=== PATIENT | female | born 1975 | race Caucasian/White ===

== ENCOUNTER 2017-06-23 14:33 | Emergency (ER) | payer SELFPAY ==
[2017-06-23] MEDS ORDERED: Sodium Chloride 0.9% 1,000 ML IV ONE (15:24)
[2017-06-23] MEDS ORDERED: diphenhydrAMINE 50 MG/ML SDV IVPUSH ONE (15:24)
--- NOTE | 2017-06-23 15:27 | EDM.PDOC ---
ED HPI GENERAL MEDICAL PROBLEM - General Chief Complaint: Allergic Reaction Stated Complaint: ALLERGIC REACTION/DISORIENTED ITCHY Time Seen by Provider: 06/23/17 15:25 Source of Information: Reports: Patient History Limitations: Reports: No Limitations - History of Present Illness INITIAL COMMENTS - FREE TEXT/NARRATIVE: History of present illness: [41-year-old female comes in complaining of itching and feelings of having an allergic reaction. Patient indicates that she could not afford her estrogen prescription so she subsequently took a [id number] estrogen type compound it was normal replacement. It had soy, black cohosh among other herbs and now patient feels like she's having allergic reaction.] Review of systems: As per history of present illness and below otherwise all systems reviewed and negative. Past medical history: As per history of present illness and as reviewed below otherwise noncontributory. Surgical history: As per history of present illness and as reviewed below otherwise noncontributory. Social history: No reported history of drug or alcohol abuse. Family history: As per history of present illness and as reviewed below otherwise noncontributory. Physical exam: HEENT: Atraumatic, normocephalic, pupils reactive, negative for conjunctival pallor or scleral icterus, mucous membranes moist, throat clear, neck supple, nontender, trachea midline. Lungs: Clear to auscultation, breath sounds equal bilaterally, chest nontender. Heart: S1S2, regular, negative for clicks, rubs, or JVD. Abdomen: Soft, nondistended, nontender. Negative for masses or hepatosplenomegaly. Negative for costovertebral tenderness. Pelvis: Stable nontender. Genitourinary: Deferred. Rectal: Deferred. Extremities: Atraumatic, negative for cords or calf pain. Neurovascular unremarkable. Neuro: Awake, alert, oriented. Cranial nerves II through XII unremarkable. Cerebellum unremarkable. Motor and sensory unremarkable throughout. Exam nonfocal. Skin slightly flushed otherwise no overt symptoms of allergic reaction Diagnostics: [] Therapeutics: [IV fluid, Benadryl] Impression: [Allergic reaction] Plan: [As continue OTC estrogen preparation follow-up with primary care] Definitive disposition and diagnosis as appropriate pending reevaluation and review of above. - Related Data Allergies Allergy/AdvReac Type Severity Reaction Status Date / Time levofloxacin [From Levuin] Allergy Rash Verified 06/23/17 14:46 Home Meds: Home Meds Cetirizine [ZyrTEC] 10 mg PO DAILY 06/23/17 [History] Esomeprazole Magnesium [Nexium] 20 mg PO DAILY 06/23/17 [History] Estrogens, Conjugated [Premarin] 1 tab PO DAILY 06/23/17 [History] Levothyroxine Sodium [Synthroid] 112 mcg PO DAILY 06/23/17 [History] Lisinopril 12.5 mg PO DAILY 06/23/17 [History] PNV95/Ferrous Fumarate/FA [ Tablet] 1 tab PO DAILY 06/23/17 [History] Simvastatin [Zocor] 20 mg PO DAILY 06/23/17 [History] buPROPion [Wellbutrin SR] 150 mg PO BID 06/23/17 [History] metFORMIN [Glucophage XR] 500 mg PO DAILY 06/23/17 [History] methylPREDNISolone [Medrol] 4 mg PO DAILY #21 tab.ds.pk 06/23/17 [Rx] valACYclovir [Valtrex] 500 mg PO DAILY 06/23/17 [History] Past Medical History Cardiovascular History: Reports: High Cholesterol, Hypertension Gastrointestinal History: Reports: GERD, Irritable Bowel Syndrome [employer] History: Reports: Psychiatric History: Reports: Anxiety Endocrine/Metabolic History: Reports: Hypothyroidism - Infectious Disease History Infectious Disease History: Reports: Chicken Pox - Past Surgical History HEENT Surgical History: Reports: Tonsillectomy GI Surgical History: Reports: Cholecystectomy Social & Family History - Family History Family Medical History: Noncontributory - Tobacco Use Smoking Status *Q: Never Smoker Second Hand Smoke Exposure: No - Caffeine Use Caffeine Use: Reports: Soda - Recreational Drug Use Recreational Drug Use: No ED ROS ALLERGIC REACTION - Review of Systems Review Of Systems: See Below (See history of present illness) ED EXAM GENERAL NO PERIP PULSE - Physical Exam Exam: See Below (See history of present illness) Course - Vital Signs Last Recorded V/S: Last Vital Signs Temp 37.0 C 06/23/17 14:43 Pulse 109 H 06/23/17 14:43 Resp 18 06/23/17 14:43 BP 137/82 06/23/17 14:43 Pulse Ox 96 06/23/17 14:43 - Orders/Labs/Meds Meds: Medications Discontinued Medications Generic Name Dose Route Start Last Admin Trade Name Freq PRN Reason Stop Dose Admin Diphenhydramine HCl 50 mg 06/23/17 15:24 06/23/17 16:03 Benadryl IVPUSH 06/23/17 15:25 50 mg ONETIME ONE Administration Sodium Chloride 1,000 mls @ 999 mls/hr 06/23/17 15:24 06/23/17 16:03 Normal Saline IV 06/23/17 16:24 999 mls/hr STAT ONE Administration Methylprednisolone Sodium Succinate 125 mg 06/23/17 16:33 Solu-Medrol IVPUSH 06/23/17 16:34 ONETIME ONE Departure - Departure Time of Disposition: 16:34 Disposition: Home, Self-Care 01 Condition: Good Clinical Impression: Allergic reaction - Discharge Information Prescriptions: methylPREDNISolone [Medrol] 4 mg PO DAILY #21 tab.ds.pk Referrals: Demi Mendes, EVELINE [Primary Care Provider] - Additional Instructions: The following information is given to patients seen in the emergency department who are being discharged to home. This information is to outline your options for follow-up care. We provide all patients seen in our emergency department with a follow-up referral. The need for follow-up, as well as the timing and circumstances, are variable depending upon the specifics of your emergency department visit. If you don't have a primary care physician on staff, we will provide you with a referral. We always advise you to contact your personal physician following an emergency department visit to inform them of the circumstance of the visit and for follow-up with them and/or the need for any referrals to a consulting specialist. The emergency department will also refer you to a specialist when appropriate. This referral assures that you have the opportunity for follow-up care with a specialist. All of these measure are taken in an effort to provide you with optimal care, which includes your follow-up. Under all circumstances we always encourage you to contact your private physician who remains a resource for coordinating your care. When calling for follow-up care, please make the office aware that this follow-up is from your recent emergency room visit. If for any reason you are refused follow-up, please contact the [facility] Emergency Department at and asked to speak to the emergency department charge nurse. Take medication as directed Discontinue the [id number] estrogen preparation we discussed Follow up with primary care 1-2 days Return to ED as needed as discussed
[2017-06-23] MEDS ORDERED: methylPREDNISolone Sodium Succinate 125 MG/2 ML SDV IVPUSH ONE (16:33)
== END 2017-06-23 17:17 | disposition home or self-care (01) ==
LOC: MW.ED 14:33
DX: T78.40XA Allergy, unspecified, initial encounter (principal); I10 Essential (primary) hypertension; Z88.8 Allergy status to other drugs, medicaments and biological substances; Z79.899 Other long term (current) drug therapy; Z79.84 Long term (current) use of oral hypoglycemic drugs
CPT/HCPCS: 96361; 96374; 96375; 99283; J1200; J2930; J7040; 99281